=== PATIENT | male | born 1980 | race Two or more races ===

== ENCOUNTER 2024-04-16 19:57 | Emergency (ER) | payer BC, SELFPAY ==
[2024-04-16 19:58] VITALS: BMI 36.6
[2024-04-16 20:03] VITALS: BP 181/99; PULSE 85; RESP 18; TEMP 36.6; O2SAT 97
--- NOTE | 2024-04-16 20:23 | PD.EDRME ---
Rapid Medical Screening Exam E Arrival date/time: 04/16/24 19:57 43-year-old male presents emergency department reporting he ate approximately 20 apricot kernel seed and reported was only supposed to eat to according to the label. Patient reports read online that they are poisonous. Time of ingestion was 1900. Poison control was contacted and recommends observation for 6 hours for any GI symptoms such as stomach upset and nausea vomiting or diarrhea. Presents does not recommend any EKG or blood work at this time. Patient is asymptomatic at this time. Chief Complaint: Overdose Time Seen by Provider: 04/16/24 20:12 Vital signs: Vital Signs Temperature 97.9 F 04/16/24 20:03 Pulse Rate 85 04/16/24 20:03 Respiratory Rate 18 04/16/24 20:03 Blood Pressure 181/99 H 04/16/24 20:03 Pulse Oximetry (%) 97 04/16/24 20:03 Oxygen Delivery Method Room Air 04/16/24 20:03 Vital signs reviewed by provider: Yes
[2024-04-16 22:27] VITALS: BP 146/91; PULSE 66; RESP 18; TEMP 36.7; O2SAT 96
--- NOTE | 2024-04-17 00:06 | PD.EDOVER ---
ED Overdose RME/HPI General Chief Complaint: Overdose Stated Complaint: 3/3 Pt ingested Apricot Kernels Time Seen by Provider: 04/16/24 20:12 Source: patient Arrival date/time: 04/16/24 19:57 43-year-old male presents emergency department reporting he ate approximately 20 apricot kernel seed and reported was only supposed to eat to according to the label. Patient reports read online that they are poisonous. Time of ingestion was 1900. Poison control was contacted and recommends observation for 6 hours for any GI symptoms such as stomach upset and nausea vomiting or diarrhea. Presents does not recommend any EKG or blood work at this time. Patient is asymptomatic at this time. Mode of arrival: ambulatory Limitations: no limitations RME / HPI RME / HPI Narrative: 04/16/24 19:57 43-year-old male presents emergency department reporting he ate approximately 20 apricot kernel seed and reported was only supposed to eat to according to the label. Patient reports read online that they are poisonous. Time of ingestion was 1900. Poison control was contacted and recommends observation for 6 hours for any GI symptoms such as stomach upset and nausea vomiting or diarrhea. Presents does not recommend any EKG or blood work at this time. Patient is asymptomatic at this time. Related Data Allergies Allergy/AdvReac Type Severity Reaction Status Date / Time NKA* Allergy Uncoded 03/31/16 22:32 Review of Systems Review of Systems Systems Reviewed: All systems reviewed, normal except as documented Constitutional Constitutional: Reports system reviewed and no additional complaints, except as documented, Denies body ache(s), Denies chills and Denies fever(s) Eyes Eyes: Reports system reviewed and no additional complaints, except as documented and Denies change in vision ENT Ears, Nose, Mouth, and Throat: Reports system reviewed and no additional complaints, except as documented, Denies disequilibrium, Denies dizziness, Denies sore throat and Denies vertigo Cardiovascular Cardiovascular: Reports system reviewed and no additional complaints, except as documented, Denies chest pain and Denies dyspnea Respiratory Respiratory: Reports system reviewed and no additional complaints, except as documented, Denies chest congestion, Denies cough and Denies dyspnea Gastrointestinal Gastrointestinal: Reports system reviewed and no additional complaints, except as documented, Denies abdominal pain, Denies nausea and Denies vomiting Musculoskeletal Musculoskeletal: Reports system reviewed and no additional complaints, except as documented, Denies abnormal gait and Denies arthralgias Integumentary/Breasts Skin/Breast: Reports system reviewed and no additional complaints, except as documented, Denies erythema, Denies rash and Denies wounds Neurologic Neurologic: Reports system reviewed and no additional complaints, except as documented, Denies abnormal gait, Denies disequilibrium, Denies dizziness and Denies vertigo Past Medical History Past Medical History CARDIAC: Negative Congestive Heart Failure RESPIRATORY: Negative Chronic Obstructive Pulmonary Disease (COPD) GENITOURINARY: Negative Renal Disease MUSCULOSKELETAL: Positive Carpal Tunnel Syndrome ENDOCRINE: Negative Diabetes Mellitus Type 1 or Diabetes Mellitus Type 2 Social History SMOKING STATUS: Never smoker ED Exam General Limitations: Present no limitations General appearance: Present alert and in no apparent distress Head Head exam: Present atraumatic Eye Eye exam: Present normal appearance, PERRL and EOMI ENT ENT exam: Present normal exam, normal oropharynx and mucous membranes moist Neck Neck exam: Present normal inspection, full ROM and trachea midline Chest Chest inspection: Present normal inspection and symmetric chest wall rise Respiratory Respiratory exam: Present normal lung sounds bilaterally Cardiovascular Cardiovascular exam: Present regular rate, normal rhythm and normal heart sounds Abdominal Exam Abdominal exam: Present soft and normal bowel sounds Extremities Exam Extremities exam: Present normal inspection and full ROM Back Exam Back exam: Present normal inspection and full ROM Neurological Exam Neurological exam: Present alert, oriented X3 and CN II-XII intact Psychiatric Psychiatric exam: Present normal affect and normal mood Skin Skin exam: Present warm, dry, intact and normal color Course Quality Measures none Vital Signs Vital signs: Vital Signs Temperature 97.9 F 04/16/24 20:03 Pulse Rate 85 04/16/24 20:03 Respiratory Rate 18 04/16/24 20:03 Blood Pressure 181/99 H 04/16/24 20:03 Pulse Oximetry (%) 97 04/16/24 20:03 Oxygen Delivery Method Room Air 04/16/24 20:03 97% room air within normal limits Overdose MDM Narrative MDM Narrative:: 43-year-old male presents emergency department reporting he ate approximately 20 apricot kernel seed and reported was only supposed to eat to according to the label. Patient reports read online that they are poisonous. Time of ingestion was 1900. Poison control was contacted and recommends observation for 6 hours for any GI symptoms such as stomach upset and nausea vomiting or diarrhea. Presents does not recommend any EKG or blood work at this time. Patient is asymptomatic at this time. Patient's abdomen is soft and nontender. No adventitious lung sounds on auscultation. Patient appears nontoxic and is hemodynamically stable. Patient is asymptomatic and does not want to wait any longer for the full 6 hours of observation reports is feeling well and will return its develops any symptoms. Instructed to have close follow-up with primary care provider return immediately for any worsening symptoms or as needed. Patient data External records reviewed:: None Clinical information provided by:: patient Social determinants that could affect healthcare access:: none Patient has the following chronic illnesses:: None How is presenting disease/condition affected by chronic disease/condition?: no chronic disease Evaluation data The following diagnostics were reviewed and interpreted by me:: other (specify) (None) Lab and/or radiology exams considered but not ordered:: None Interpretation Summary: None Medications / Prescriptions Medications or Prescriptions considered but not ordered:: None Medication administrations:: None Consultations Consultation(s) initiated? (list below): No Diagnosis Overdose Differential Diagnosis: accidental drug ingestion Most likely diagnosis given after review of the tests above:: Ingestion of toxic substance Admission Indicated Admission indicated?: not indicated Admission Request Was there a request for admission?: No Disposition Plan Disposition Plan: Discharge Discharge Attestation Discharge Attestation: The patient and all family members were given an opportunity to ask questions and understood the discharge instructions. Discharge instructions specifically effects, indications for sooner follow up or return to the emergency department, and the expected course of current diagnosis. Patient condition: Stable Discharge Plan Plan Patient Disposition: HOME (Self Care) Disposition Comment: Stable Prescriptions/Referrals Referrals: No Primary/Family,Physician [Primary Care Provider] - In 1 week Problem List Clinical Impression: Ingestion of toxic substance Patient/Caregiver Discharge Instructions Discharge Activity: activity as tolerated Education Materials: First Aid: Poisoning Additional Instructions: Drink plenty of fluids and stay hydrated. Follow-up with primary care provider in 2 to 3 days. Return to emergency department for any worsening symptoms or as needed. Print Language: Norwegian Stand Alone Forms: [facility] Award Info., Patient Portal Info Letter PA/GRACIELA Supervising Physician CHRISTELLE/GRACIELA Supervising Physician: Dr. Morales
== END 2024-04-17 00:13 | disposition home or self-care (01) ==
PROVIDERS: Emergency Provider Emergency Medicine
DX: T62.2X1A Toxic effect of other ingested (parts of) plant(s), accidental (unintentional), initial encounter (principal)
CPT/HCPCS: 99281